=== PATIENT | female | born 1975 | race Caucasian/White ===

== ENCOUNTER → 2018-05-18 12:28 | Outpatient (CLI) | payer OTHER, SELFPAY ==
[2018-05-18 13:13] LABS: Cholesterol 247 mg/dL (140-199); HDL Cholesterol 66 mg/dL (40-60); LDL Cholesterol Calculated 149 mg/dL (<100); Triglycerides 161 mg/dL (35-150)
[2018-05-18 13:29] LABS: Free T4, Direct Thyroxine 1.28 ng/dL (0.78-2.19)
[2018-05-18 13:43] LABS: Thyroid Stimulating Hormone 1.37 uIU/mL (0.47-4.68)
[2018-05-18 17:13] LABS: Vitamin D 25 Hydroxy (D3) 36.1 ng/mL (30.0-100.0)
== END ==
PROVIDERS: PCP Student in an Organized Health Care Education/Training Program; Visit Provider Student in an Organized Health Care Education/Training Program
DX: E03.9 Hypothyroidism, unspecified (principal); K58.9 Irritable bowel syndrome, unspecified; Z13.220 Encounter for screening for lipoid disorders
CPT/HCPCS: 36415; 80061; 82306; 84439; 84443

== ENCOUNTER → 2018-07-28 11:46 | Outpatient (CLI) | payer OTHER, SELFPAY ==
--- NOTE | 2018-07-28 11:49 | DI.RAD.S_ITS ---
PROCEDURE: XR KNEE RT 3V INDICATIONS: bilateral knee pain TECHNIQUE: 3 views of the knee were acquired. COMPARISON: [facility], , KNEE 3V RIGHT, 04/21/2017, 11:01. FINDINGS: Bones: No fractures or dislocations. No suspicious bony lesions. Postsurgical changes related to ACL reconstruction. Soft tissues: Small joint effusion. No suspicious soft tissue calcifications. IMPRESSION: Status post ACL reconstruction. Mild lateral patellar tilt Small joint effusion. If the patient's pain or other symptoms persist, consider further evaluation with MRI Dictated by: Andre Knox M.D. on 07/28/2018 at 13:03 Approved by: Andre Knox M.D. on 07/28/2018 at 13:04
--- NOTE | 2018-07-28 11:49 | DI.RAD.S_ITS ---
PROCEDURE: XR KNEE LT 3V INDICATIONS: bilateral knee pain TECHNIQUE: 3 views of the knee were acquired. COMPARISON: [facility], , KNEE 3V RIGHT, 04/21/2017, 11:01. FINDINGS: Bones: No fractures or dislocations. No suspicious bony lesions. Mild medial joint space narrowing. Post surgical changes related to prior ACL repair. Lateral patellar tilt noted Soft tissues: No joint effusion. No suspicious soft tissue calcifications. IMPRESSION: Postsurgical changes related to ACL repair. Mild left knee joint degeneration. Lateral patellar tilt. Dictated by: Andre Knox M.D. on 07/28/2018 at 12:32 Approved by: Andre Knox M.D. on 07/28/2018 at 12:34
== END ==
PROVIDERS: PCP Student in an Organized Health Care Education/Training Program; Visit Provider Physical Medicine & Rehabilitation
DX: M25.561 Pain in right knee (principal); M25.562 Pain in left knee; M17.12 Unilateral primary osteoarthritis, left knee; M25.461 Effusion, right knee; M22.8X2 Other disorders of patella, left knee; M22.8X1 Other disorders of patella, right knee
CPT/HCPCS: 73562

== ENCOUNTER 2022-05-26 17:04 | Observation (INO) | payer OTHER, SELFPAY ==
[2022-05-26] VITALS (9 sets, daily range): BP systolic 133–164; BP diastolic 83–100; PULSE 81–115; RESP 14–37; TEMP 36.3–36.7; O2SAT 97–100; BMI 26.5; BMI 27.6
--- NOTE | 2022-05-26 18:50 | DI.RAD.S_ITS ---
PROCEDURE: XR FOOT LT MIN 3V INDICATIONS: foot injury TECHNIQUE: 3 views of the foot were acquired. COMPARISON: None. FINDINGS: Bones: No fractures or dislocations. No suspicious bony lesions. Soft tissues: No tibiotalar joint effusion. Achilles tendon appears normal. Mild forefoot soft tissue swelling without radiopaque foreign body. IMPRESSION: Soft tissue swelling without lytic lesion. If there is clinical concern for osteomyelitis, consider 3 phase bone scan or MRI Approved by: Jered Dickens M.D. on 05/26/2022 at 18:37
--- NOTE | 2022-05-26 19:38 | DI.RAD.S_ITS ---
PROCEDURE: XR CHEST 1V INDICATIONS: chest pain TECHNIQUE: One view of the chest was acquired. COMPARISON: [facility], , CHEST 2 VIEW, 05/11/2017, 12:05. FINDINGS: Surgical changes and devices: None. Lungs and pleura: Lungs are clear. No pleural effusions or pneumothorax. Mediastinum: Mediastinal contours appear normal. Heart size is normal. Bones and chest wall: No suspicious bony lesions. Overlying soft tissues appear unremarkable. IMPRESSION: No acute cardiopulmonary pathology. Dictated by: Keith Le M.D. on 05/26/2022 at 20:46 Approved by: Keith Le M.D. on 05/26/2022 at 20:47
--- NOTE | 2022-05-26 19:40 | ED.EXTPRO ---
HPI - Extremity Problem General Chief complaint: Extremity Problem,Nontraumatic Stated complaint: fluid on lt foot, painful, unable to walk Time Seen by Provider: 05/26/22 19:29 Mode of arrival: Family Vehicle History of Present Illness HPI Narrative: Patient complains left foot pain and swelling as well as left-sided chest pain. No sweating no nausea. Patient states he is had morphine without difficulty with allergies. Patient has history of stroke back in 2007 with left-sided weakness that has resolved. Patient has family history of coronary artery disease/or father. No prior history of blood clots in legs or lungs. 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 Has been doing well, she states possibly has ingrown planter's wart that has gone below the surface of the skin. Has had pain and swelling to the foot for the past week. No known injury. Related Data Home Medications Medication Instructions Recorded Confirmed albuterol sulfate 90 mcg/actuation 1 puff IH SEE INSTRUCTIONS 05/26/22 05/26/22 aerosol inhaler (Proventil HFA) dextroamphetamine-amphetamine ER 30 mg PO QAM 05/26/22 05/26/22 25 mg 24hr capsule,extend release ibuprofen 800 mg tablet 800 mg PO Q8-10H PRN Pain, Moderate 05/26/22 05/26/22 losartan 50 mg tablet 50 mg PO DAILY 05/26/22 05/26/22 promethazine 50 mg tablet 25 mg PO Q DAY PRN PRN nausea and 05/26/22 05/26/22 vomiting tizanidine 2 mg tablet 2 - 4 mg PO BID PRN Spasms 05/26/22 05/26/22 medroxyprogesterone 150 mg/mL 150 mg IM [id number] 05/27/22 05/27/22 intramuscular syringe (Depo-Provera) Previous Rx's Medication Instructions Recorded montelukast 10 mg tablet 10 mg PO Q DAY #90 tabs 01/26/18 (Singulair) Allergies Allergy/AdvReac Type Severity Reaction Status Date / Time amoxicillin [AMOXICILLIN] Allergy Intermediate UPSET Verified 05/26/22 17:28 STOMACH, EMESIS Penicillins [PENICILLINS] Allergy Unknown Verified 05/26/22 17:28 acetaminophen [From Vicodin] AdvReac Severe Vomiting Verified 05/26/22 17:29 hydrocodone [From Vicodin] AdvReac Severe Vomiting Verified 05/26/22 17:29 oxycodone [From Percocet] AdvReac Severe Vomiting Verified 05/26/22 17:29 duloxetine [From Cymbalta] AdvReac Intermediate Diarrhea Verified 05/26/22 17:28 pregabalin [From Lyrica] AdvReac Intermediate vomiting, Verified 05/26/22 17:28 dizzy spells Review of Systems Review of Systems Narrative: GENERAL: Denies chills, fatigue, malaise, fever, sweats. HEENT: Denies sinus pain, ear pain, sore throat RESPIRATORY: Denies dyspnea, cough CARDIOVASCULAR: Positive chest pain, negative palpitations GASTROINTESTINAL: Denies nausea, vomiting, abdominal pain : Denies dysuria, frequency, hematuria MUSCULOSKELETAL: Positive muscle or bony pain SKIN: Denies rash, skin lesions NEUROLOGIC: Denies weakness, numbness ROS Unobtainable: All systems reviewed & are unremarkable except as noted in HPI and below Patient History Medical History Acquired hypothyroidism (06/15/16) ADHD Anxiety (06/15/16) Anxiety (~2000) Anxiety (2000) Asthma Bucket handle tear of medial meniscus of knee Chronic fatigue (~2007) Cystic fibrosis Depression Endometriosis Fibromyalgia (06/15/16) Fibromyalgia (~2008) Fibromyalgia (2008) Hearing deficit Hearing loss Hearing loss High risk medication use (06/15/16) Hypothyroid (~1999) Hypothyroidism (1999) Irritable bowel syndrome (~2008) Migraine Migraine without status migrainosus, not intractable (06/15/16) Migraines Postsurgical menopause (05/24/17) Posttraumatic stress disorder (11/01/16) Primary insomnia (04/21/17) PTSD (post-traumatic stress disorder) PTSD (post-traumatic stress disorder) Rupture of anterior cruciate ligament of right knee Shoulder pain Stroke (~2007) Uncomplicated opioid use (05/24/17) Surgical History Hx of hysterectomy Hx of knee surgery (2003) Hx of knee surgery (09/2017) Status post appendectomy Family History Father Age: 74 Mental health disorder Mother Mental health disorder Social History marital status: household members: spouse and children education level: elementary school seatbelt use: always helmet use: Yes Smoking Status: Former smoker alcohol intake: current substance use type: marijuana during the past year weight has: decreased > 10 lbs well-balanced diet: daily or most days daily servings fruits/ve-4 caffeine: No eating out: 1-3 times/week Type(s) of exercise: additional (gym) frequency: 3-4 times per week duration: > 90 minutes/day Smoking Status: Former smoker alcohol intake frequency: holidays/special occasions only Substance Use Type: marijuana Exam Narrative Exam Narrative: GENERAL: in no distress, not toxic not dyspneic HEAD: Normocephalic. EYES: Pupils equal round No scleral icterus. ENT: Mucous membranes moist. NECK: Trachea midline. CARDIOVASCULAR: Regular rate and rhythm without murmurs RESPIRATORY: Clear to auscultation. Breath sounds equal bilaterally. No wheezes, rales, or rhonchi. GASTROINTESTINAL: Abdomen soft, non-tender EXTREMITIES: No gross deformities. Examination left foot and ankle. Nontender ankle. There is diffuse forefoot edema with no cellulitis erythema, it is tender to touch diffusely entire foot. Brisk cap refills. Strong pedal pulse. No discoloration. Calf is nontender. No palpable cords. NEURO: AOx4. SKIN: Warm and dry PSYCH: Not anxious, is cooperative Initial Vital Signs Initial Vital Signs: Vital Signs Temperature 97.3 F L 05/26/22 17:20 Pulse Rate 115 H 05/26/22 17:20 Respiratory Rate 18 05/26/22 17:20 Blood Pressure 143/89 H 05/26/22 17:20 Pulse Oximetry 99 05/26/22 17:20 Oxygen Delivery Method 05/26/22 17:20 Course Course Course Narrative: No new issues during course of stay Decision to Admit Date: 05/26/22 Decision to Admit time: 22:10 Orders Ordered: ED Orders 05/26/22 18:50 XR foot LT min 3V Stat 05/26/22 19:38 XR chest 1V Stat 05/26/22 19:41 US periph venous low extrem lt Stat 05/26/22 19:51 EKG-12 Lead Stat 05/26/22 19:52 Complete Blood Count AUTO DIFF Stat Comprehensive Metabolic Panel Stat D Dimer Stat Troponin & CK Cardiac Panel Stat 05/26/22 19:55 COVID19 -Nasal RAPID/Pre-Proc Stat Aspirin (Aspirin Ec 81 Mg Tablet) 162 mg PO DAILY [facility] Hydromorphone HCl (Hydromorphone 1 Mg Inj) 1 mg IV Q4H PRN PRN Reason: Pain, Severe (7-10) Last Admin: 05/27/22 00:03 Dose: 1 mg Documented By: JOSE JUAN Sodium Chloride (Normal Saline 0.9%) 1,000 mls @ 100 mls/hr IV CONT TONY Last Admin: 05/26/22 23:58 Dose: 100 mls/hr Documented By: JOSE JUAN Ibuprofen (Ibuprofen 400 Mg Tablet) 400 mg PO Q4H PRN PRN Reason: Pain, Mild (1-3) Influenza Virus Vaccine (Influenza Vaccine Qiv 0.5 Ml Syringe) 0.5 ml IM .ONCE ONE Stop: 05/27/22 09:01 Naloxone HCl (Naloxone 0.4 Mg/Ml Vial) 0.2 mg IV Q2MIN PRN PRN Reason: Opiate Reversal Ondansetron HCl (Ondansetron 4 Mg/2 Ml Inj) 4 mg IV Q4HR PRN PRN Reason: Nausea And Vomiting Last Admin: 05/27/22 00:19 Dose: 4 mg Documented By: JOSE JUAN Promethazine HCl (Promethazine 25 Mg Supp) 25 mg [place] Q6HR PRN PRN Reason: Nausea Discontinued Medications Aspirin (Aspirin 81 Mg Chew Tab) 324 mg PO NOW ONE Stop: 05/26/22 19:39 Last Admin: 05/26/22 20:06 Dose: 324 mg Documented By: SUDHIR Morphine Sulfate (Morphine 4 Mg/Ml Inj) 4 mg IV NOW ONE Stop: 05/26/22 19:39 Last Admin: 05/26/22 20:07 Dose: 4 mg Documented By: SUDHIR Morphine Sulfate (Morphine 4 Mg/Ml Inj) 4 mg IV NOW ONE Stop: 05/26/22 22:55 Last Admin: 05/26/22 22:57 Dose: 4 mg Documented By: CLEM Nitroglycerin (Nitroglycerin Oint 1 Inch/Gm Oint...G.) 0.5 inch TOP NOW ONE Stop: 05/26/22 19:39 Last Admin: 05/26/22 20:06 Dose: 0.5 inch Documented By: SUDHIR Ondansetron HCl (Ondansetron 4 Mg/2 Ml Inj) 4 mg IV NOW ONE Stop: 05/26/22 19:39 Last Admin: 05/26/22 20:07 Dose: 4 mg Documented By: SUDHIR Ondansetron HCl (Ondansetron 4 Mg/2 Ml Inj) 4 mg IV Q8HR PRN PRN Reason: Nausea And Vomiting Reevaluation(s) Reevaluation #1: Chest pain-free. Pain is controlled in the foot. Reviewed results with patient. Agrees for admit. Time: 21:42 Consultations Consultation #1: Spoke with hospitalist Dr. Cramer, will see pt and admit Time: 22:10 Vital Signs Vital signs: Vital Signs - 8 hr 05/26/22 20:03 05/26/22 20:03 05/26/22 20:30 Pulse Rate 96 H Respiratory Rate Blood Pressure 154/97 H 164/100 H Pulse Oximetry 99 05/26/22 20:30 05/26/22 21:00 05/26/22 21:00 Pulse Rate 90 94 H Respiratory Rate 31 H 14 Blood Pressure 149/85 H Pulse Oximetry 100 99 05/26/22 21:30 05/26/22 22:00 05/26/22 22:00 Pulse Rate 91 H 83 Respiratory Rate 22 18 Blood Pressure 133/83 Pulse Oximetry 99 98 MDM - Extremity (Nontraumatic) Differential Diagnosis Differential diagnosis: Likely superficial thrombophlebitis, deep venous thrombosis of upper extremity, lower extremity edema, deep vein thrombosis of lower extremity and other (Chest pain/atypical chest pain/PE) Lab Data Result diagrams: 05/26/22 19:52 05/26/22 19:52 Labs: Lab Results 05/26/22 05/26/22 05/26/22 Range/Units 19:52 19:52 19:52 WBC 7.8 (4.5-11.0) X10^3/uL RBC 3.90 L (4.0-5.2) X10^6/uL Hgb 12.9 (12.0-16.0) g/dL Hct 38.0 (36-46) % MCV 97.3 (80-100) fL MCH 33.1 (26-34) PG MCHC 34.0 (30-36) % RDW 13.4 (11.6-14.8) % Plt Count 410 H (150-400) X10^3/uL Neut % (Auto) 65.2 (50-75) % Lymph % (Auto) 26.5 (25-40) % [place] % (Auto) 7.2 (3-14) % Eos % (Auto) 0.4 L (2-4) % Baso % (Auto) 0.7 (0-2) % Neut # (Auto) 5100 (0246-1139) /uL Lymph # (Auto) 2100 (3552-9123) /uL [place] # (Auto) 600 (0-900) /uL Eos # (Auto) 0 (0-450) /uL Baso # (Auto) 100 (0-100) /uL D-Dimer 488 (<500) ng/ml Sodium 138 (137-145) mmol/L Potassium 3.8 (3.4-5.1) mmol/L Chloride 106 (98-107) mmol/L Carbon Dioxide 23 (22-32) mmol/L BUN 11 (7-17) mg/dL Creatinine 0.69 (0.52-1.04) mg/dL Estimated GFR > 60 (>60) mL/min BUN/Creatinine Ratio 15.9 (6-22) Glucose 121 H (70-100) mg/dL Calcium 9.0 (8.4-10.2) mg/dL Total Bilirubin 0.3 (0.2-1.3) mg/dL AST 22 (14-36) IU/L ALT 23 (<35) IU/L Alkaline Phosphatase 130 H (38-126) U/L Total Creatine Kinase 44 (30-135) U/L CK-MB (CK-2) TNP CK-MB (CK-2) Rel Index TNP Troponin I < 0.012 (0.01-0.034) ng/mL Total Protein 7.6 (6.3-8.2) g/dL Albumin 4.2 (3.5-5.0) g/dL Globulin 3.4 (1.7-4.1) g/dL Albumin/Globulin Ratio 1.2 (1.0-2.8) SARS-CoV-2 (PCR) (Negative) 05/26/22 Range/Units 19:55 WBC (4.5-11.0) X10^3/uL RBC (4.0-5.2) X10^6/uL Hgb (12.0-16.0) g/dL Hct (36-46) % MCV (80-100) fL MCH (26-34) PG MCHC (30-36) % RDW (11.6-14.8) % Plt Count (150-400) X10^3/uL Neut % (Auto) (50-75) % Lymph % (Auto) (25-40) % [place] % (Auto) (3-14) % Eos % (Auto) (2-4) % Baso % (Auto) (0-2) % Neut # (Auto) (3581-6855) /uL Lymph # (Auto) (8914-7671) /uL [place] # (Auto) (0-900) /uL Eos # (Auto) (0-450) /uL Baso # (Auto) (0-100) /uL D-Dimer (<500) ng/ml Sodium (137-145) mmol/L Potassium (3.4-5.1) mmol/L Chloride (98-107) mmol/L Carbon Dioxide (22-32) mmol/L BUN (7-17) mg/dL Creatinine (0.52-1.04) mg/dL Estimated GFR (>60) mL/min BUN/Creatinine Ratio (6-22) Glucose (70-100) mg/dL Calcium (8.4-10.2) mg/dL Total Bilirubin (0.2-1.3) mg/dL AST (14-36) IU/L ALT (<35) IU/L Alkaline Phosphatase (38-126) U/L Total Creatine Kinase (30-135) U/L CK-MB (CK-2) CK-MB (CK-2) Rel Index Troponin I (0.01-0.034) ng/mL Total Protein (6.3-8.2) g/dL Albumin (3.5-5.0) g/dL Globulin (1.7-4.1) g/dL Albumin/Globulin Ratio (1.0-2.8) SARS-CoV-2 (PCR) Negative (Negative) Urine Dip Bedside Urine Glucose Negative Bedside Urine Bilirubin - Negative Bedside Urine Ketone - Negative Urine Specific [place] 1.010 Bedside Urine Occult Blood - Negative Bedside Urine pH 6.0 Bedside Urine Protein - Negative Bedside Urine Urobilinogen - Negative Bedside Urine Nitrite - Negative Bedside Urine Leukocytes - Negative Esterase Imaging Data Chest x-ray: Radiologist's Impression: [address] [id number] XRay Report Signed Patient: Petar Gaitan MR#: [id number] : 1975 Acct:[id number] Age/Sex: 47 / F Date of Service: 05/26/22 Loc: ED Accession Number: [id number] ?? Procedure: XR chest 1V Ordering Provider: Tonio Eaton MD PROCEDURE:? XR CHEST 1V ? INDICATIONS:? chest pain ? TECHNIQUE:? One view of the chest was acquired.? ? COMPARISON:? [facility], , CHEST 2 VIEW, 05/11/2017, 12:05. ? FINDINGS:? ? Surgical changes and devices:? None.? ? Lungs and pleura:? Lungs are clear.? No pleural effusions or pneumothorax.? ? Mediastinum:? Mediastinal contours appear normal.? Heart size is normal.? ? Bones and chest wall:? No suspicious bony lesions.? Overlying soft tissues appear unremarkable.? ? IMPRESSION:? No acute cardiopulmonary pathology. ? ? Dictated by: Keith Le M.D. on 05/26/2022 at 20:46 ? ? Approved by: Keith Le M.D. on 05/26/2022 at 20:47 ? Extremity x-ray #1: Radiologist's Impression: [address] [id number] XRay Report Signed Patient: Petar Gaitan MR#: [id number] : 1975 Acct:[id number] Age/Sex: 47 / F Date of Service: 05/26/22 Loc: ED Accession Number: [id number] ?? Procedure: XR foot LT min 3V Ordering Provider: Tonio Eaton MD PROCEDURE:? XR FOOT LT MIN 3V ? INDICATIONS:? foot injury ? TECHNIQUE:? 3 views of the foot were acquired.? ? COMPARISON:? None. ? FINDINGS:? ? Bones:? No fractures or dislocations.? No suspicious bony lesions.? ? Soft tissues:? No tibiotalar joint effusion.? Achilles tendon appears normal.? Mild forefoot soft tissue swelling without radiopaque foreign body. ? ? IMPRESSION:? ? Soft tissue swelling without lytic lesion.? If there is clinical concern for osteomyelitis, consider 3 phase bone scan or MRI ? ? ? Approved by: Jered Dickens M.D. on 05/26/2022 at 18:37? US - DVT: Radiologist's Impression: [address] [address] Ultrasound Report Signed Patient: Petar Gaitan MR#: [id number] : 1975 Acct:[id number] Age/Sex: 47 / F Date of Service: 05/26/22 Loc: ED Accession Number: [id number] ?? Procedure: US periph venous low extrem lt Ordering Provider: Tonio Eaton MD PROCEDURE:? US PERIPH VENOUS LOW EXTREM LT ? INDICATIONS:? PAIN, EDEMA ? TECHNIQUE:? Real-time imaging, as well as color and pulse Doppler interrogation, were performed of the lower extremity deep veins from the inguinal ligament to the popliteal fossa.? ? COMPARISON:? None. ? FINDINGS:? The common femoral, femoral and popliteal veins are normally compressible, and free of intraluminal thrombus.? Color and pulse Doppler demonstrate normal phasic intraluminal flow.? There is normal augmentation response to distal compression maneuver. ? ? IMPRESSION:? No evidence of DVT in visualized left lower extremity veins. ? ? Dictated by: Keith Le M.D. on 05/26/2022 at 21:18 ? ? Approved by: Keith Le M.D. on 05/26/2022 at 21:18 ? ECG Data Interpretation: Normal sinus rhythm normal EKG rate [address] elevation or depression MDM Narrative Medical decision making narrative: Appropriate for admission for chest pain rule out. Has significant cardiovascular history/disease. Chest pain-free at this time. Agrees for admission. Left foot pain nonspecific however can be followed as outpatient basis. Discharge Plan Departure Patient Disposition: Admitted as Observation Clinical Impression: Atypical chest pain, Acute foot pain Admit Date/Time: 05/26/22 22:19 Admit Provider: Codi Levin
--- NOTE | 2022-05-26 19:41 | DI.US.S_ITS ---
PROCEDURE: US PERIPH VENOUS LOW EXTREM LT INDICATIONS: PAIN, EDEMA TECHNIQUE: Real-time imaging, as well as color and pulse Doppler interrogation, were performed of the lower extremity deep veins from the inguinal ligament to the popliteal fossa. COMPARISON: None. FINDINGS: The common femoral, femoral and popliteal veins are normally compressible, and free of intraluminal thrombus. Color and pulse Doppler demonstrate normal phasic intraluminal flow. There is normal augmentation response to distal compression maneuver. IMPRESSION: No evidence of DVT in visualized left lower extremity veins. Dictated by: Keith Le M.D. on 05/26/2022 at 21:18 Approved by: Keith Le M.D. on 05/26/2022 at 21:18
[2022-05-26] MEDS: NITROGLYCERIN OINT 1 INCH/GM OINT...G. 0.5 INCH TOP (20:06)
[2022-05-26] MEDS: ASPIRIN 81 MG CHEW TAB 324 MG PO (20:06)
[2022-05-26 20:07] LABS: Add Manual Diff / Slide Review NO; Basophils Absolute Auto 100 /uL (0-100); Basophils Percent Auto 0.7 % (0-2); Eosinophils Absolute Auto 0 /uL (0-450); Eosinophils Percent Auto 0.4 % (2-4); Hemoglobin 12.9 g/dL (12.0-16.0); Lymphocytes Absolute Auto 2100 /uL (1100-4500); Lymphocytes Percent Auto 26.5 % (25-40); Mean Corpuscular Hemoglobin 33.1 PG (26-34); Mean Corpuscular Volume 97.3 fL (80-100); Monocytes Absolute Auto 600 /uL (0-900); Monocytes Percent Auto 7.2 % (3-14); Neutrophils Absolute Auto 5100 /uL (1500-7000); Neutrophils Percent Auto 65.2 % (50-75); Platelet Count 410 X10^3/uL (150-400); Red Cell Distribution Width 13.4 % (11.6-14.8); White Blood Cell Count 7.8 X10^3/uL (4.5-11.0)
[2022-05-26] MEDS: ONDANSETRON 4 MG/2 ML INJ IV (20:07)
[2022-05-26] MEDS: MORPHINE 4 MG/ML INJ IV ×2 (20:07→22:57)
[2022-05-26 20:36] LABS: D Dimer 488 ng/ml (<500)
[2022-05-26 20:38] LABS: Alanine Aminotransferase 23 IU/L (<35); Albumin 4.2 g/dL (3.5-5.0); Albumin Globulin Ratio 1.2 (1.0-2.8); Alkaline Phosphatase 130 U/L (38-126); Aspartate Aminotransferase 22 IU/L (14-36); BUN Creatinine Ratio 15.9 (6-22); Bilirubin Total 0.3 mg/dL (0.2-1.3); Blood Urea Nitrogen 11 mg/dL (7-17); Carbon Dioxide 23 mmol/L (22-32); Chloride 106 mmol/L (98-107); Creatine Kinase 44 U/L (30-135); Estimated Glomerular Filt Rate > 60 mL/min (>60); Globulin 3.4 g/dL (1.7-4.1); Glucose 121 mg/dL (70-100); HEMOLYSIS < 15 (0-50); Potassium 3.8 mmol/L (3.4-5.1); Sodium 138 mmol/L (137-145); Total Protein 7.6 g/dL (6.3-8.2)
[2022-05-26 20:47] LABS: COVID19 -Nasal RAPID Negative (Negative)
[2022-05-26 20:49] LABS: Troponin I < 0.012 ng/mL (0.01-0.034)
--- NOTE | 2022-05-26 23:10 | P.HP_ITS ---
History of Present Illness History of Present Illness Chief complaint: fluid on lt foot, painful, unable to walk Narrative: Patient complains left foot pain and swelling as well as left-sided chest pain.? No sweating no nausea.? Patient states he is had morphine without difficulty with allergies.? Patient has history of stroke back in 2007 with left-sided weakness that has resolved.? Patient has family history of coronary artery disease/or father.? No prior history of blood clots in legs or lungs.? Patient s [id number] she had left foot plantar warts taken care of by a mobile battery technician.? Has been doing well, she states possibly has ingrown planter's wart that has gone below the surface of the skin.? Has had pain and swelling to the foot for the past week.? No known injury. And I saw the patient in the ER she continues to have left lower extremity pain that started few days ago, she used to have a Podiatry but not anymore she did not like the care process. She complains of sharp pain in the left foot with some swelling under the great toe region. She is unable to walk on the foot because of the pain. She describes pain 8/10 sharp radiating to the leg exacerbated by walking and weight-bearing. She came to the ER for further evaluation of the chest pain which is intermittent midsternal nonexertional 6/10 dull and no significant relieving or exacerbating factors but nitro given in the ER does seem to be helped a little bit. I spent extensive time at bedside gathering more information regarding her complaints, review of systems positive for chest pain, leg pain primarily but she does have chronic pain syndrome secondary to fibromyalgia as she confirms. She was worried about the leg clots but I assured her the ultrasound negative for DVT. Her present at bedside. She is worried that she might miss her daughter's 18th birthday in 2 days. Review of systems positive for mild intermittent headaches, chronic body pains, leg pain. no fevers no chills. Patient History Medical History Acquired hypothyroidism (06/15/16) ADHD Anxiety (06/15/16) Anxiety (~2000) Anxiety (2000) Asthma Bucket handle tear of medial meniscus of knee Chronic fatigue (~2007) Cystic fibrosis Depression Endometriosis Fibromyalgia (06/15/16) Fibromyalgia (~2008) Fibromyalgia (2008) Hearing deficit Hearing loss Hearing loss High risk medication use (06/15/16) Hypothyroid (~1999) Hypothyroidism (1999) Irritable bowel syndrome (~2008) Migraine Migraine without status migrainosus, not intractable (06/15/16) Migraines Postsurgical menopause (05/24/17) Posttraumatic stress disorder (11/01/16) Primary insomnia (04/21/17) PTSD (post-traumatic stress disorder) PTSD (post-traumatic stress disorder) Rupture of anterior cruciate ligament of right knee Shoulder pain Stroke (~2007) Uncomplicated opioid use (05/24/17) Surgical History Hx of hysterectomy Hx of knee surgery (2003) Hx of knee surgery (09/2017) Status post appendectomy Family & Social History Family History Father Age: 74 Mental health disorder Mother Mental health disorder Safety & Behavioral: Feels Safe in Current Yes Environment Been Physically Hurt or No Threatened By a Person Tobacco & Substance use: Smoking Status Former smoker alcohol intake never alcohol intake frequency holiday/special occasion Substance Use Type marijuana Comment: Family history positive for coronary artery disease. Meds Home Medications and Allergies Home Medications Medication Instructions Recorded Confirmed Type montelukast 10 mg tablet 10 mg PO Q DAY #90 tabs 01/26/18 05/26/22 Rx (Singulair) albuterol sulfate 90 mcg/actuation 1 puff IH SEE INSTRUCTIONS 05/26/22 05/26/22 History aerosol inhaler (Proventil HFA) dextroamphetamine-amphetamine ER 30 mg PO QAM 05/26/22 05/26/22 History 25 mg 24hr capsule,extend release ibuprofen 800 mg tablet 800 mg PO Q8-10H PRN Pain, Moderate 05/26/22 05/26/22 History losartan 50 mg tablet 50 mg PO DAILY 05/26/22 05/26/22 History promethazine 50 mg tablet 25 mg PO Q DAY PRN PRN nausea and 05/26/22 05/26/22 History vomiting tizanidine 2 mg tablet 2 - 4 mg PO BID PRN Spasms 05/26/22 05/26/22 History Allergies Allergy/AdvReac Type Severity Reaction Status Date / Time amoxicillin [AMOXICILLIN] Allergy Intermediate UPSET Verified 05/26/22 17:28 STOMACH, EMESIS Penicillins [PENICILLINS] Allergy Unknown Verified 05/26/22 17:28 acetaminophen [From Vicodin] AdvReac Severe Vomiting Verified 05/26/22 17:29 hydrocodone [From Vicodin] AdvReac Severe Vomiting Verified 05/26/22 17:29 oxycodone [From Percocet] AdvReac Severe Vomiting Verified 05/26/22 17:29 duloxetine [From Cymbalta] AdvReac Intermediate Diarrhea Verified 05/26/22 17:28 pregabalin [From Lyrica] AdvReac Intermediate vomiting, Verified 05/26/22 17:28 dizzy spells Review of Systems Review of Systems Narrative: All other systems reviewed, negative other than as mentioned above in HPI Exam Vital Signs (past 8 hours): - 05/26/22 17:20 05/26/22 20:03 05/26/22 20:03 Temperature 97.3 F L Pulse Rate 115 H 96 H Respiratory Rate 18 Blood Pressure 143/89 H 154/97 H Pulse Oximetry 99 99 Oxygen Delivery Method Room Air 05/26/22 20:30 05/26/22 20:30 05/26/22 21:00 Temperature Pulse Rate 90 Respiratory Rate 31 H Blood Pressure 164/100 H 149/85 H Pulse Oximetry 100 Oxygen Delivery Method 05/26/22 21:00 05/26/22 21:30 05/26/22 22:00 Temperature Pulse Rate 94 H 91 H Respiratory Rate 14 22 Blood Pressure 133/83 Pulse Oximetry 99 99 Oxygen Delivery Method 05/26/22 22:00 05/26/22 22:30 05/26/22 22:30 Temperature Pulse Rate 83 112 H Respiratory Rate 18 37 H Blood Pressure 145/84 H Pulse Oximetry 98 98 Oxygen Delivery Method 05/26/22 23:00 Temperature Pulse Rate 84 Respiratory Rate 18 Blood Pressure Pulse Oximetry 97 Oxygen Delivery Method Oxygen Delivery Method Room Air Narrative Exam Narrative: Alert oriented does seem to be anxious, worried, able to make a reasonable conversation, follows commands. Examination positive for mild epigastric discomfort on deep palpation, left lower extremity swelling specifically in the plantar area of the left foot, possible fluid accumulation, tenderness on superficial palpation, examination is limited because patient complains significant amount of pain for touch. I did not feel redness or warmth nurse on my palpation on left extremity. I was able to feel dorsalis pedis pulses appropriately on both extremities. No calf tenderness. Range of motion is also limited because patient having pain when trying to move her left foot toes. No signs of ischemia or discoloration noted on my exam. Cardiovascular, respiratory, constitutional, HEENT, neuro, skin, psych examination done, negative other than as mentioned above Objective Labs Result Diagrams: 05/26/22 19:52 05/26/22 19:52 Labs: Laboratory Results - last 24 hr 05/26/22 05/26/22 05/26/22 19:52 19:52 19:52 WBC 7.8 RBC 3.90 L Hgb 12.9 Hct 38.0 MCV 97.3 MCH 33.1 MCHC 34.0 RDW 13.4 Plt Count 410 H Neut % (Auto) 65.2 Lymph % (Auto) 26.5 [place] % (Auto) 7.2 Eos % (Auto) 0.4 L Baso % (Auto) 0.7 Neut # (Auto) 5100 Lymph # (Auto) 2100 [place] # (Auto) 600 Eos # (Auto) 0 Baso # (Auto) 100 D-Dimer 488 Sodium 138 Potassium 3.8 Chloride 106 Carbon Dioxide 23 BUN 11 Creatinine 0.69 Estimated GFR > 60 BUN/Creatinine Ratio 15.9 Glucose 121 H Calcium 9.0 Total Bilirubin 0.3 AST 22 ALT 23 Alkaline Phosphatase 130 H Total Creatine Kinase 44 CK-MB (CK-2) TNP CK-MB (CK-2) Rel Index TNP Troponin I < 0.012 Total Protein 7.6 Albumin 4.2 Globulin 3.4 Albumin/Globulin Ratio 1.2 SARS-CoV-2 (PCR) 05/26/22 19:55 WBC RBC Hgb Hct MCV MCH MCHC RDW Plt Count Neut % (Auto) Lymph % (Auto) [place] % (Auto) Eos % (Auto) Baso % (Auto) Neut # (Auto) Lymph # (Auto) [place] # (Auto) Eos # (Auto) Baso # (Auto) D-Dimer Sodium Potassium Chloride Carbon Dioxide BUN Creatinine Estimated GFR BUN/Creatinine Ratio Glucose Calcium Total Bilirubin AST ALT Alkaline Phosphatase Total Creatine Kinase CK-MB (CK-2) CK-MB (CK-2) Rel Index Troponin I Total Protein Albumin Globulin Albumin/Globulin Ratio SARS-CoV-2 (PCR) Negative Assessment & Plan Assessment & Plan narrative: Nonexertional chest pain -strong family history and also history of stroke -high-risk -telemetry monitoring, troponin, stress test in the morning Left lower extremity pain, swelling of plantar surface -unclear etiology, before considering MRI, we will call Podiatry for further recommendations -I explained to the patient that my expertise and limited on unfortunately I am unable to conclude any diagnosis at this time, we will wait for expert opinion for further recommendations Chronic pain syndrome and fibromyalgia -continue home medications Other chronic medical conditions are stable DVT and GI prophylaxis reviewed Patient is full code Care plan extensively discussed with the patient and also at bedside, answered all questions. Time Spent With Patient Critical Care time: I spent a total of [] minutes of critical care time on this patient's care today; this time is exclusive of procedural time.
[2022-05-26] MEDS: SODIUM CHLORIDE 0.9% 1,000 ML 100 ML IV (23:58)
[2022-05-27] MEDS: HYDROMORPHONE 1 MG INJ IV (00:03)
[2022-05-27] MEDS: ONDANSETRON 4 MG/2 ML INJ IV ×3 (00:19→12:00)
--- NOTE | 2022-05-27 00:48 | PC.ADMIT ---
Addendum entered by Petra Pickard R.N. 05/27/22 03:46: Noted that HR intermittently dropping down into 30's after administration of Phenergan. Currently HR is 65 and patient appears to be resting with no current nausea/vomiting. Addendum entered by Petra Pickard R.N. 05/27/22 02:17: Continuing to have nausea with dry heaves so Dr Levin contacted and ordered received for Phenergan; medicated as ordered. Original Note: [address] Admission Note: The patient,Petar Gaitan,47 y/o, was given written information regarding hospital policies, unit procedures and contact persons. Patient's smoking status: Former smoker. Vital Signs - 8 hr 05/26/22 17:20 05/26/22 20:03 05/26/22 20:03 Temperature 97.3 F L Pulse Rate 115 H 96 H Respiratory Rate 18 Blood Pressure 143/89 H 154/97 H Pulse Oximetry 99 99 Oxygen Delivery Method Room Air Oxygen Flow Rate 05/26/22 20:30 05/26/22 20:30 05/26/22 21:00 Temperature Pulse Rate 90 Respiratory Rate 31 H Blood Pressure 164/100 H 149/85 H Pulse Oximetry 100 Oxygen Delivery Method Oxygen Flow Rate 05/26/22 21:00 05/26/22 21:30 05/26/22 22:00 Temperature Pulse Rate 94 H 91 H Respiratory Rate 14 22 Blood Pressure 133/83 Pulse Oximetry 99 99 Oxygen Delivery Method Oxygen Flow Rate 05/26/22 22:00 05/26/22 22:30 05/26/22 22:30 Temperature Pulse Rate 83 112 H Respiratory Rate 18 37 H Blood Pressure 145/84 H Pulse Oximetry 98 98 Oxygen Delivery Method Oxygen Flow Rate 05/26/22 23:00 05/26/22 23:34 05/27/22 00:42 Temperature 98.1 F Pulse Rate 84 81 Respiratory Rate 18 21 Blood Pressure 145/99 H Pulse Oximetry 97 100 Oxygen Delivery Method Room Air Oxygen Flow Rate 0 Patient admitted to room 210 per stretcher from ER. Is alert and oriented. Breath sounds CTA with RA sat of 100%. HRR w/telemetry reading of ST w/rate of 103. Does endorse chest tightness and MD is aware; has NTG patch on right chest. Complains of nausea and has 2 episode of emesis; medicated with Zofran. BT present and abdomen is soft. Reports she sometimes doesn't make it to the bathroom in time and has been incontinent so wears a pad; denies dysuria. Is able to turn herself in bed. Hx of CVA with residual left UE weakness/tremors and left LE weakness/tingling. Complains of pain in left foot and yells out with any movement or touching of extremity; trace edema noted. States she is unable to bear weight on left foot. Normally uses a cane for ambulation. Endorses chronic fatigue, anxiety and has hx of fibromyalgia. Bilateral calf SCD's applied. Fall risk score is high and bed alarm is activated. NPO as per MD order as plan for stress test in a.m. Oriented to call light and bed controls. Medicated for left foot pain with Dilaudid.
[2022-05-27] MEDS: PROMETHAZINE 25 MG SUPP PR (01:55)
[2022-05-27 04:00] VITALS: BP 133/94; PULSE 48; RESP 17; TEMP 35.6; O2SAT 100
[2022-05-27 08:47] VITALS: BP 155/98; PULSE 77; RESP 18; TEMP 36.3; O2SAT 99
[2022-05-27] MEDS: ASPIRIN EC 81 MG TABLET 162 MG PO (09:53)
[2022-05-27] MEDS: MORPHINE 2 MG/ML INJ IV ×4 (09:54→22:57)
[2022-05-27] MEDS: INFLUENZA VACCINE QIV 0.5 ML SYRINGE IM (10:51)
[2022-05-27] MEDS: SODIUM CHLORIDE 0.9% 1,000 ML 100 ML IV ×2 (11:01→21:48)
--- NOTE | 2022-05-27 11:16 | CM.DANOTE ---
Initial Discharge Assessment Note: Case reviewed, met with patient. Introduced self and role. Payer: and self pay PCP: Dr Tomás Sneed 47 year old female admitted with pain and swelling to left plantar foot and difficulty ambulating. She states she has had plantar warts in past and has had surgery for. Negative for DVT. She is NPO for possible stress test today. Plan: Patient lives in [place] with spouse and desires to return home when cleared. Follow for needs. NERY Discharge Planning/Care Management CM Discharge Assessment Start: 05/27/22 11:05 Freq: Status: Active Protocol: Document 05/27/22 11:05 (Rec: 05/27/22 11:16 [id number]) Discharge Planning Assessment Assigned [place] [employer] Operator Isa Olsen RN/DERICP Advance Directives? No History Provided By Patient Prior Living Arrangements Apartment/Condo Household Members spouse,children Type of transporation used prior to Drives own vehicle admit Independent with ADL's Yes Is patient alert and oriented? Yes Caregiver for Another No Barriers to Discharge No Discharge Plan Home Referrals Initiated None needed Review Status In Process Next Review Type Continued Stay Review
[2022-05-27 11:55] VITALS: BP 141/97; PULSE 80; RESP 16; TEMP 36.6; O2SAT 100
[2022-05-27] MEDS: IBUPROFEN 400 MG TABLET PO (12:21)
--- NOTE | 2022-05-27 13:08 | P.PN_ITS ---
Subjective Subjective Interval history: Patient complained on presentation to the ER of left foot pain and swelling as well as left-sided chest pain.? No sweating no nausea.? Patient states she i had morphine without difficulty with allergies.? Patient has history of stroke back in 2007 with left-sided weakness that has resolved.? Patient has family history of coronary artery disease/or father. Currently she is waiting for a cardiac stress test that is scheduled for tomorrow. In regards to her left foot pain and swelling. It remains persistent. The most tender part of the foot is at the site of a callus on the ball of the foot. She thinks the calluses over a wart and her theory is that the wart is fairly deep and is causing the swelling as well. There is no erythema. There is no open wound. The plan and regards to the left foot will be to refer her to a enrollment representative on discharge. Exam Vital Signs (past 8 hours): - 05/27/22 08:47 05/27/22 11:55 Temperature 97.3 F L 97.8 F Pulse Rate 77 80 Respiratory Rate 18 16 Blood Pressure 155/98 H 141/97 H Pulse Oximetry 99 100 Oxygen Flow Rate 0 0 Oxygen Delivery Method Room Air Oxygen Flow Rate 0 Narrative Exam Narrative: General: In no acute medical distress. Cardiovascular: Heart sounds S1 and S2 Respiratory: Adequate air entry throughout the lung [place] Extremities: Swelling left foot. No erythema. Most marked tenderness at the ball of the left foot in area where there is a callus. Objective Labs Result Diagrams: 05/26/22 19:52 05/26/22 19:52 Labs: Laboratory Results - last 24 hr 05/26/22 05/26/22 05/26/22 19:52 19:52 19:52 WBC 7.8 RBC 3.90 L Hgb 12.9 Hct 38.0 MCV 97.3 MCH 33.1 MCHC 34.0 RDW 13.4 Plt Count 410 H Neut % (Auto) 65.2 Lymph % (Auto) 26.5 [place] % (Auto) 7.2 Eos % (Auto) 0.4 L Baso % (Auto) 0.7 Neut # (Auto) 5100 Lymph # (Auto) 2100 [place] # (Auto) 600 Eos # (Auto) 0 Baso # (Auto) 100 D-Dimer 488 Sodium 138 Potassium 3.8 Chloride 106 Carbon Dioxide 23 BUN 11 Creatinine 0.69 Estimated GFR > 60 BUN/Creatinine Ratio 15.9 Glucose 121 H Calcium 9.0 Total Bilirubin 0.3 AST 22 ALT 23 Alkaline Phosphatase 130 H Total Creatine Kinase 44 CK-MB (CK-2) TNP CK-MB (CK-2) Rel Index TNP Troponin I < 0.012 Total Protein 7.6 Albumin 4.2 Globulin 3.4 Albumin/Globulin Ratio 1.2 SARS-CoV-2 (PCR) 05/26/22 19:55 WBC RBC Hgb Hct MCV MCH MCHC RDW Plt Count Neut % (Auto) Lymph % (Auto) [place] % (Auto) Eos % (Auto) Baso % (Auto) Neut # (Auto) Lymph # (Auto) [place] # (Auto) Eos # (Auto) Baso # (Auto) D-Dimer Sodium Potassium Chloride Carbon Dioxide BUN Creatinine Estimated GFR BUN/Creatinine Ratio Glucose Calcium Total Bilirubin AST ALT Alkaline Phosphatase Total Creatine Kinase CK-MB (CK-2) CK-MB (CK-2) Rel Index Troponin I Total Protein Albumin Globulin Albumin/Globulin Ratio SARS-CoV-2 (PCR) Negative [facility] Medical History Acquired hypothyroidism (06/15/16) ADHD Anxiety (06/15/16) Anxiety (~2000) Anxiety (2000) Asthma Bucket handle tear of medial meniscus of knee Chronic fatigue (~2007) Cystic fibrosis Depression Endometriosis Fibromyalgia (06/15/16) Fibromyalgia (~2008) Fibromyalgia (2008) Hearing deficit Hearing loss Hearing loss High risk medication use (06/15/16) Hypothyroid (~1999) Hypothyroidism (1999) Irritable bowel syndrome (~2008) Migraine Migraine without status migrainosus, not intractable (06/15/16) Migraines Postsurgical menopause (05/24/17) Posttraumatic stress disorder (11/01/16) Primary insomnia (04/21/17) PTSD (post-traumatic stress disorder) PTSD (post-traumatic stress disorder) Rupture of anterior cruciate ligament of right knee Shoulder pain Stroke (~2007) Uncomplicated opioid use (05/24/17) Surgical History Hx of hysterectomy Hx of knee surgery (2003) Hx of knee surgery (09/2017) Status post appendectomy Family History Father Age: 74 Mental health disorder Mother Mental health disorder Social History marital status: household members: spouse and children education level: elementary school seatbelt use: always helmet use: Yes Smoking Status: Former smoker alcohol intake: current substance use type: marijuana during the past year weight has: decreased > 10 lbs well-balanced diet: daily or most days daily servings fruits/ve-4 caffeine: No eating out: 1-3 times/week Type(s) of exercise: additional (gym) frequency: 3-4 times per week duration: > 90 minutes/day Assessment & Plan Assessment & Plan narrative: 1. Nonexertional chest pain -strong family history and also history of stroke -high-risk -telemetry monitoring, troponin are negative x2, stress test scheduled for tomorrow 2. Left lower extremity pain, swelling of plantar surface. Callus on plantar surface of left foot. Exquisitely tender at callus site. This is very consistent with a plantar wart. However with the patient having underlying chronic pain syndrome and fibromyalgia, this may be presentation of a new location of chronic pain syndrome secondary to an underlying wart. Continue home medications for chronic pain syndrome. 3. Many comorbidities. Continue home medications except for Adderall due to the patient's presentation with chest pain. DVT prophylaxis: Lovenox GI prophylaxis: Pantoprazole Code status: Full code Time Spent With Patient Critical Care time: I spent a total of [] minutes of critical care time on this patient's care today; this time is exclusive of procedural time.
[2022-05-27 16:36] VITALS: BP 151/94; PULSE 75; RESP 18; TEMP 36.6; O2SAT 100
--- NOTE | 2022-05-27 18:44 | PC.NURSE ---
Pt requesting Aderall that she brought from home, medication in pt cabinet locked drawer. States, takes everyday and will be loopy, hard to focus, and aggravated if doesn't take. Notified Dr. Arshad and she states, holding off on Aderall because of chest pain. Notified pt.
[2022-05-27 19:55] VITALS: BP 173/99; PULSE 76; RESP 18; TEMP 36.5; O2SAT 100
[2022-05-27] MEDS: LOSARTAN 50 MG TABLET PO (21:47)
[2022-05-28] VITALS: BP 142/85; PULSE 81; RESP 18; TEMP 37.1; O2SAT 97
[2022-05-28] MEDS: MORPHINE 2 MG/ML INJ IV ×3 (05:32→13:37)
[2022-05-28 05:36] VITALS: BP 119/64; PULSE 79; RESP 18; TEMP 36.8; O2SAT 95
[2022-05-28 07:59] VITALS: BP 145/83; PULSE 65; RESP 18; TEMP 36.8; O2SAT 98
[2022-05-28] MEDS: ONDANSETRON 4 MG/2 ML INJ IV ×2 (09:28→16:49)
[2022-05-28] MEDS: ASPIRIN EC 81 MG TABLET 162 MG PO (09:56)
[2022-05-28] MEDS: ENOXAPARIN 40 MG/0.4 ML SYRINGE SUBCUT (09:56)
[2022-05-28] MEDS: SODIUM CHLORIDE 0.9% 1,000 ML 100 ML IV (10:19)
[2022-05-28 13:26] VITALS: BP 153/103; PULSE 80; RESP 18; TEMP 36.4; O2SAT 98
[2022-05-28 13:36] VITALS: BP 158/103; PULSE 76
[2022-05-28] MEDS: LOSARTAN 50 MG TABLET PO (13:36)
--- NOTE | 2022-05-28 15:36 | PM.DS.1 ---
History of Present Illness History of Present Illness Chief complaint: fluid on lt foot, painful, unable to walk Discharge Providers Provider Date of admission: 05/26/22 22:19 Discharge Date: 05/28/22 Primary care physician: Tomás Sneed MD Discharge provider: Zelda Arshad MD Summary Hospital Course Discharge Diagnosis: Diagnosis responsible for length of stay: Left-sided chest pain Pre admit diagnoses: Left-sided chest pain Pain left foot Swelling left foot Callus left plantar surface Concern for plantar wart left ball of foot Post admit diagnosis: None Secondary diagnoses: Acquired hypothyroidism (06/15/16) ADHD Anxiety (06/15/16) Anxiety (2000) Asthma Bucket handle tear of medial meniscus of knee Chronic fatigue (~2007) Cystic fibrosis Depression Endometriosis Fibromyalgia (06/15/16) Fibromyalgia (~2008) Fibromyalgia (2008) Hearing deficit Hearing loss High risk medication use (06/15/16) Hypothyroidism (1999) Irritable bowel syndrome (~2008) Migraine Migraine without status migrainosus, not intractable (06/15/16) Migraines Postsurgical menopause (05/24/17) Posttraumatic stress disorder (11/01/16) Primary insomnia (04/21/17) PTSD (post-traumatic stress disorder) PTSD (post-traumatic stress disorder) Rupture of anterior cruciate ligament of right knee Shoulder pain Stroke (~2007) Uncomplicated opioid use (05/24/17) Hx of hysterectomy Hx of knee surgery (2003) Hx of knee surgery (09/2017) Status post appendectomy Hospital Course: Patient complained on presentation to the ER of left foot pain and swelling as well as left-sided chest pain.? No sweating no nausea.? Patient states she had morphine without difficulty with her current allergies.? Patient has history of stroke back in 2007 with left-sided weakness that has resolved.? Patient has family history of coronary artery disease/or father. The left-sided chest pain and the left foot pain appeared to be completely separate issues. The left foot pain ethics significant callus on the plantar surface of the ball of the left foot and most likely had a plantar wart underneath the callus. It was exquisitely tender and there was significant swelling in the soft tissues on the plantar surface of the foot and between the metatarsal bones of the midfoot. There did not appear to be any erythema or any signs of infection. It appeared to be swelling that was irritating the soft tissues of the foot and most likely a plantar wart. Referral will be made to a cement paver on discharge. A small dose of will be prescribed so she can take 50 mg t.i.d. as needed. In regards to the left-sided chest pain, a cardiac stress test was completed pharmacologically. On discussing the results with Dr. Raza, cardiology, there appeared to be a very small area of reversible ischemia however on another view this possibly was only an artifact. Therefore the cardiac stress test is not conclusive for ischemia. Patient can be discharged without concern for ongoing cardiac issues. Adderall was held during the hospital stay so as not to stimulate the heart. Status at Discharge Cognitive/behavioral status at discharge: at baseline, oriented Functional status at discharge: independent ambulation Overall status at discharge: patient is back to baseline Time Spent with Patient Time spent: Greater than 30 minutes Exam Vital Signs (past 8 hours): - 05/28/22 07:59 05/28/22 13:26 05/28/22 13:36 Temperature 98.2 F 97.6 F Pulse Rate 65 80 76 Respiratory Rate 18 18 Blood Pressure 145/83 H 153/103 H 158/103 H Pulse Oximetry 98 98 Oxygen Flow Rate 0 0 Oxygen Delivery Method Room Air Oxygen Flow Rate 0 Narrative Exam Narrative: General:? In no acute medical distress. Cardiovascular:? Heart sounds S1 and S2 Respiratory:? Adequate air entry throughout the lung [place] Extremities:? Swelling left foot.? No erythema.? Most marked tenderness at the ball of the left foot in area where there is a callus. Objective Labs Result Diagrams: 05/26/22 19:52 05/26/22 19:52 [facility] Medical History Acquired hypothyroidism (06/15/16) ADHD Anxiety (06/15/16) Anxiety (~2000) Anxiety (2000) Asthma Bucket handle tear of medial meniscus of knee Chronic fatigue (~2007) Cystic fibrosis Depression Endometriosis Fibromyalgia (06/15/16) Fibromyalgia (~2008) Fibromyalgia (2008) Hearing deficit Hearing loss Hearing loss High risk medication use (06/15/16) Hypothyroid (~1999) Hypothyroidism (1999) Irritable bowel syndrome (~2008) Migraine Migraine without status migrainosus, not intractable (06/15/16) Migraines Postsurgical menopause (05/24/17) Posttraumatic stress disorder (11/01/16) Primary insomnia (04/21/17) PTSD (post-traumatic stress disorder) PTSD (post-traumatic stress disorder) Rupture of anterior cruciate ligament of right knee Shoulder pain Stroke (~2007) Uncomplicated opioid use (05/24/17) Surgical History Hx of hysterectomy Hx of knee surgery (2003) Hx of knee surgery (09/2017) Status post appendectomy Family History Father Age: 74 Mental health disorder Mother Mental health disorder Social History marital status: household members: spouse and children education level: elementary school seatbelt use: always helmet use: Yes Smoking Status: Former smoker alcohol intake: current substance use type: marijuana during the past year weight has: decreased > 10 lbs well-balanced diet: daily or most days daily servings fruits/ve-4 caffeine: No eating out: 1-3 times/week Type(s) of exercise: additional (gym) frequency: 3-4 times per week duration: > 90 minutes/day Discharge Plan Discharge Plan Patient Disposition: Home Discharge orders & Medications Prescriptions: New tramadol 50 mg tablet 50 mg PO Q8H PRN (Reason: pain) Qty: 30 0RF Continued montelukast [Singulair] 10 mg tablet 10 mg PO Q DAY Qty: 90 3RF losartan 50 mg tablet 50 mg PO DAILY Label Comments: TAKE ONE TABLET BY MOUTH ONE TIME DAILY tizanidine 2 mg tablet 2 - 4 mg PO BID PRN (Reason: Spasms) Label Comments: TAKE ONE OR TWO TABLETS BY MOUTH TWICE DAILY NEEDED for muscle spasm ibuprofen 800 mg tablet 800 mg PO Q8-10H PRN (Reason: Pain, Moderate) Label Comments: TAKE ONE TABLET BY MOUTH EVERY EIGHT HOURS WITH FOOD dextroamphetamine-amphetamine 25 mg capsule,extended release 24hr 30 mg PO QAM Label Comments: TAKE ONE CAPSULE BY MOUTH EVERY MORNING WITH FOOD promethazine 50 mg tablet 25 mg PO Q DAY PRN PRN (Reason: nausea and vomiting) albuterol sulfate [Proventil HFA] 90 MCG/PUFF HFA aerosol inhaler 1 puff IH BID medroxyprogesterone [Depo-Provera] 150 mg/mL Syringe 150 mg IM [id number] Follow up/Referrals: Tomás Sneed MD [Primary Care Provider] - Diet/Activity/Treatments Diet: Diet as Tolerated Discharge Data Primary Care Provider: Tomás Sneed Attending Provider: Codi Levin
--- NOTE | 2022-05-28 16:45 | DI.NM.S_ITS ---
DATE OF SERVICE: 05/28/2022 PROCEDURE: Pharmacological perfusion study. INDICATION: Chest pain. RADIOPHARMACEUTICAL: 27.1 millicurie technetium-99m Myoview IV was injected at stress and 9.4 millicurie technetium-99m Myoview IV was injected at rest. CARDIAC STRESS: The patient underwent IV Lexiscan perfusion study under the supervision of an attending staff using standard intravenous Lexiscan protocol. Baseline blood pressure 170/98. Baseline rhythm was sinus. During stress, there were no convincing ischemic changes. No significant arrhythmias seen. The patient had minimal dyspnea. No chest discomfort. RAW DATA: There is increased subdiaphragmatic activity. It is affecting the apex and inferior border of the heart, more in stress supine than resting supine images. Please note, the patient does not have any stress prone images. GATED STUDY: Stress LV ejection fraction 84 percent without any obvious wall motion abnormalities. Stress end-diastolic volume 93 mL. Lung/heart ratio 0.35, which is within normal limits. TID ratio 1.19, which is within normal limits. It is a pharmacological perfusion study. MYOCARDIAL PERFUSION SCAN: This patient does not have any stress prone images. Stress supine and resting supine images were compared to each other. There appears to be mild reversible perfusion defect involving the distal inferior wall and inferoapex. Summed rest score 0 and summed stress score 3 and difference score is 3. CONCLUSION: This is an abnormal myocardial perfusion study with mild reversible ischemia of the distal inferior wall and inferoapex with summed difference score 3. However, there is increased subdiaphragmatic activity seen during stress supine images involving the inferior border of the heart and the apex. [place] and inferior wall is moving well. This could be an artifact, as well. However, we do not have any stress prone images. Overall, this is a low-risk myocardial perfusion scan. Correlate clinically. Discussed the findings with Dr. Crockett. Thanks. Petar Gaitan - MIKY/akash/vivi doc#: [id number]/job#: [id number] dd: 05/28/2022 12:56:00 dt: 05/28/2022 16:32:00 DICTATING MD/COPIES TO: Yaneth Raza MD COPIES MNE: JEAN;
[2022-05-28 16:54] VITALS: BP 185/109
--- NOTE | 2022-05-28 17:03 | PC.NURSE ---
Notified Dr. Arshad that pt blood pressure is 185/109 and heart rate 137. Dr. Arshad states, pt is likely anxious and this is increasing blood pressure and heart rate. Ativan prescribed, see MAR.
[2022-05-28] MEDS: LORazepam 2 MG/ML INJ 1 MG IV (17:22)
== END 2022-05-28 17:55 | disposition home or self-care (01) ==
LOC: ED 19:44 → AC 22:20
PROVIDERS: Admitting Provider Family Medicine; Emergency Provider Emergency Medicine; PCP Student in an Organized Health Care Education/Training Program; Referring Provider Emergency Medicine; Visit Provider Family Medicine
DX: M79.672 Pain in left foot (principal); R07.9 Chest pain, unspecified; G89.4 Chronic pain syndrome; M79.7 Fibromyalgia; Z86.73 Personal history of transient ischemic attack (TIA), and cerebral infarction without residual deficits; Z20.822 Contact with and (suspected) exposure to COVID-19
CPT/HCPCS: 36415; 71045; 73630; 78452; 80053; 81003; 82550; 84484; 85025; 85379; 87635; 90471; 90656; 93005; 93010; 93017; 93971; 96361; 96372; 96374; 96375; 96376; 99284; C9803; G0378; A9502; J1170; J1650; J2060; J2270; J2405; J2785; Q2038

== ENCOUNTER 2022-05-31 01:27 | Emergency (ER) | payer OTHER, SELFPAY ==
[2022-05-26 23:33] VITALS: BMI 27.6
[2022-05-31 01:32] VITALS: PULSE 109; RESP 16; O2SAT 99
[2022-05-31 01:34] VITALS: BP 170/109; PULSE 98; RESP 18; TEMP 36.7; O2SAT 99
--- NOTE | 2022-05-31 01:42 | ED.ALLEREA ---
HPI - Allergic Reaction General Chief complaint: Allergic Reaction Stated complaint: hives, feels body is on fire, sob Time Seen by Provider: 05/31/22 01:31 Source: patient Mode of arrival: Ambulatory Limitations: no limitations History of Present Illness HPI narrative: Patient is a 47-year-old female who states that she is here for evaluation of a potential allergic reaction. Symptoms started within the past 24 hours. She did take a Benadryl and also some ibuprofen. States she is having some shortness of breath. She was recently here admitted to the hospital and had a nuclear stress test. She is concerned that maybe she is having a reaction to the material that she was given for this test. She states that she has fibromyalgia so her body reacts differently to different things. Related Data Home Medications Medication Instructions Recorded Confirmed albuterol sulfate 90 mcg/actuation 1 puff IH BID 05/26/22 05/27/22 aerosol inhaler (Proventil HFA) dextroamphetamine-amphetamine ER 30 mg PO QAM 05/26/22 05/26/22 25 mg 24hr capsule,extend release ibuprofen 800 mg tablet 800 mg PO Q8-10H PRN Pain, Moderate 05/26/22 05/26/22 losartan 50 mg tablet 50 mg PO DAILY 05/26/22 05/26/22 promethazine 50 mg tablet 25 mg PO Q DAY PRN PRN nausea and 05/26/22 05/26/22 vomiting tizanidine 2 mg tablet 2 - 4 mg PO BID PRN Spasms 05/26/22 05/26/22 medroxyprogesterone 150 mg/mL 150 mg IM [id number] 05/27/22 05/27/22 intramuscular syringe (Depo-Provera) Previous Rx's Medication Instructions Recorded montelukast 10 mg tablet 10 mg PO Q DAY #90 tabs 01/26/18 (Singulair) ondansetron 8 mg disintegrating 8 mg PO Q8H #20 tabs 05/28/22 tablet tramadol 50 mg tablet 50 mg PO Q8H PRN pain #30 tabs 05/28/22 prednisone 20 mg tablet 20 mg PO DAILY 6 days #6 tabs 05/31/22 Allergies Allergy/AdvReac Type Severity Reaction Status Date / Time amoxicillin [AMOXICILLIN] Allergy Intermediate UPSET Verified 05/26/22 17:28 STOMACH, EMESIS Penicillins [PENICILLINS] Allergy Unknown Verified 05/26/22 17:28 acetaminophen [From Vicodin] AdvReac Severe Vomiting Verified 05/26/22 17:29 hydrocodone [From Vicodin] AdvReac Severe Vomiting Verified 05/26/22 17:29 oxycodone [From Percocet] AdvReac Severe Vomiting Verified 05/26/22 17:29 duloxetine [From Cymbalta] AdvReac Intermediate Diarrhea Verified 05/26/22 17:28 pregabalin [From Lyrica] AdvReac Intermediate vomiting, Verified 05/26/22 17:28 dizzy spells Review of Systems Constitutional Constitutional: Reports system reviewed and no additional complaints, except as documented Cardiovascular Cardiovascular: Reports system reviewed and no additional complaints, except as documented Respiratory Respiratory: Reports system reviewed and no additional complaints, except as documented Integumentary/Breasts Skin/Breast: Reports system reviewed and no additional complaints, except as documented Hematologic/Lymphatic On Anticoagulants: No Allergic/Immunologic Allergic/Immunologic: Reports system reviewed and no additional complaints, except as documented Patient History Medical History Acquired hypothyroidism (06/15/16) ADHD Anxiety (06/15/16) Anxiety (~2000) Anxiety (2000) Asthma Bucket handle tear of medial meniscus of knee Chronic fatigue (~2007) Cystic fibrosis Depression Endometriosis Fibromyalgia (06/15/16) Fibromyalgia (~2008) Fibromyalgia (2008) Hearing deficit Hearing loss Hearing loss High risk medication use (06/15/16) Hypothyroid (~1999) Hypothyroidism (1999) Irritable bowel syndrome (~2008) Migraine Migraine without status migrainosus, not intractable (06/15/16) Migraines Postsurgical menopause (05/24/17) Posttraumatic stress disorder (11/01/16) Primary insomnia (04/21/17) PTSD (post-traumatic stress disorder) PTSD (post-traumatic stress disorder) Rupture of anterior cruciate ligament of right knee Shoulder pain Stroke (~2007) Uncomplicated opioid use (05/24/17) Surgical History Hx of hysterectomy Hx of knee surgery (2003) Hx of knee surgery (09/2017) Status post appendectomy Family History Father Age: 74 Mental health disorder Mother Mental health disorder Social History marital status: household members: spouse and children education level: elementary school seatbelt use: always helmet use: Yes Smoking Status: Former smoker alcohol intake: current substance use type: marijuana during the past year weight has: decreased > 10 lbs well-balanced diet: daily or most days daily servings fruits/ve-4 caffeine: No eating out: 1-3 times/week Type(s) of exercise: additional (gym) frequency: 3-4 times per week duration: > 90 minutes/day Smoking Status: Former smoker alcohol intake frequency: holidays/special occasions only Substance Use Type: marijuana Exam Initial Vital Signs Initial Vital Signs: Vital Signs Pulse Rate 109 H 05/31/22 01:32 Respiratory Rate 16 05/31/22 01:32 Pulse Oximetry 99 05/31/22 01:32 Const General: cooperative, healthy appearing and comfortable HENNH Mouth: moist mucous membranes Throat: posterior oropharynx normal Resp Effort & Inspection: normal respiratory effort Auscultation: clear to auscultation bilaterally Cardio Rate: regular rate Skin Other: Patient has bruising on her upper extremities consistent with the IVs that she had of her recent admission to the hospital. She has small red snow on her chest but no urticaria. No surrounding erythema. These are the areas that she states are itching. Neuro General: patient alert, patient awake and moves all extremities Extrem General: normal to inspection and capillary refill normal Course Orders Ordered: Discontinued Medications Prednisone (Prednisone 20 Mg Tablet) 20 mg PO NOW ONE Stop: 05/31/22 01:43 Last Admin: 05/31/22 01:51 Dose: 20 mg Documented By: SUDHIR Vital Signs Vital signs: Vital Signs - 8 hr 05/31/22 01:34 05/31/22 01:32 Temperature 98.1 F Pulse Rate 98 H 109 H Respiratory Rate 18 16 Blood Pressure 170/109 H Pulse Oximetry 99 99 Oxygen Delivery Method Room Air MDM - Allergic Reaction MDM Narrative Medical decision making narrative: She does have some areas of redness on her upper chest that she states are itching. They do not appear to be urticarial. Unsure the exact etiology of any allergic reaction. I have low suspicion was the stress test that she had recently in the material that she got for this. Will send her home with a prescription for steroids for the next couple days. Patient is not having an anaphylactic reaction. She was given return precautions. Discharge Plan Departure Patient Disposition: Home Clinical Impression: Allergic reaction Instructions: DI for General Allergic Reactions Activity Restrictions/Additional Instructions: I recommend that you continue with the Benadryl. You can also take Claritin. We will start you on a prescription of steroids. Your 1st dose was given here in the ER. A prescription was sent to the pharmacy of your choice. Contact your primary doctor for a follow-up. Prescriptions: New prednisone 20 mg tablet 20 mg PO DAILY 6 Days Qty: 6 0RF No Action montelukast [Singulair] 10 mg tablet 10 mg PO Q DAY Qty: 90 3RF losartan 50 mg tablet 50 mg PO DAILY Label Comments: TAKE ONE TABLET BY MOUTH ONE TIME DAILY tizanidine 2 mg tablet 2 - 4 mg PO BID PRN (Reason: Spasms) Label Comments: TAKE ONE OR TWO TABLETS BY MOUTH TWICE DAILY NEEDED for muscle spasm ibuprofen 800 mg tablet 800 mg PO Q8-10H PRN (Reason: Pain, Moderate) Label Comments: TAKE ONE TABLET BY MOUTH EVERY EIGHT HOURS WITH FOOD dextroamphetamine-amphetamine 25 mg capsule,extended release 24hr 30 mg PO QAM Label Comments: TAKE ONE CAPSULE BY MOUTH EVERY MORNING WITH FOOD promethazine 50 mg tablet 25 mg PO Q DAY PRN PRN (Reason: nausea and vomiting) albuterol sulfate [Proventil HFA] 90 MCG/PUFF HFA aerosol inhaler 1 puff IH BID medroxyprogesterone [Depo-Provera] 150 mg/mL Syringe 150 mg IM [id number] tramadol 50 mg tablet 50 mg PO Q8H PRN (Reason: pain) Qty: 30 0RF ondansetron 8 mg tablet,disintegrating 8 mg PO Q8H Qty: 20 0RF Referrals: Miscellaneous,Doctor, MD [Primary Care Provider] - Visit Report Forms: Patient Portal/API
[2022-05-31] MEDS: predniSONE 20 MG TABLET PO (01:51)
== END 2022-05-31 01:57 | disposition home or self-care (01) ==
PROVIDERS: Emergency Provider Emergency Medicine
DX: T78.40XA Allergy, unspecified, initial encounter (principal); R06.02 Shortness of breath
CPT/HCPCS: 99283

== ENCOUNTER 2022-06-16 13:52 | Emergency (ER) | payer OTHER, SELFPAY ==
[2022-05-26 23:33] VITALS: BMI 27.6
[2022-06-16] VITALS (24 sets, daily range): BP systolic 124–191; BP diastolic 95–109; PULSE 88–131; RESP 16–60; TEMP 36.4; O2SAT 95–99; BMI 24.0
--- NOTE | 2022-06-16 14:09 | DI.RAD.S_ITS ---
PROCEDURE: XR CHEST 1V INDICATIONS: chest pain TECHNIQUE: One view of the chest was acquired. COMPARISON: [facility], CR, XR CHEST 1V, 05/26/2022, 20:16. FINDINGS: Surgical changes and devices: None. Lungs and pleura: Lungs are clear. No pleural effusions or pneumothorax. Mediastinum: Mediastinal contours appear normal. Heart size is normal. Bones and chest wall: No suspicious bony lesions. Overlying soft tissues appear unremarkable. IMPRESSION: No acute cardiopulmonary pathology. Dictated by: Keith Le M.D. on 06/16/2022 at 14:52 Approved by: Keith Le M.D. on 06/16/2022 at 14:52
[2022-06-16 14:26] LABS: Prothrombin Time 11.3 SECONDS (10.1-12.7)
[2022-06-16 14:29] LABS: PTT Partial Thromboplastin Tim 28 SECONDS (26-36)
[2022-06-16 14:30] LABS: Add Manual Diff / Slide Review NO; Basophils Absolute Auto 100 /uL (0-100); Basophils Percent Auto 0.7 % (0-2); Eosinophils Absolute Auto 0 /uL (0-450); Eosinophils Percent Auto 0.4 % (2-4); Hemoglobin 14.8 g/dL (12.0-16.0); Lymphocytes Absolute Auto 1900 /uL (1100-4500); Lymphocytes Percent Auto 20.2 % (25-40); Mean Corpuscular HGB Conc 33.7 % (30-36); Mean Corpuscular Hemoglobin 32.7 PG (26-34); Mean Corpuscular Volume 96.9 fL (80-100); Monocytes Absolute Auto 800 /uL (0-900); Monocytes Percent Auto 8.4 % (3-14); Neutrophils Absolute Auto 6800 /uL (1500-7000); Neutrophils Percent Auto 70.3 % (50-75); Platelet Count 500 X10^3/uL (150-400); Red Blood Cell Count 4.54 X10^6/uL (4.0-5.2); Red Cell Distribution Width 13.4 % (11.6-14.8); White Blood Cell Count 9.6 X10^3/uL (4.5-11.0)
--- NOTE | 2022-06-16 15:01 | ED.CHESTPAIN ---
HPI - Chest Pain General Chief Complaint: Chest Pain Stated Complaint: xtry of heart attack chest pain high BP & heart ra Time Seen by Provider: 06/16/22 14:11 Source: patient Mode of arrival: Family Vehicle Limitations: no limitations History of Present Illness HPI narrative: 47-year-old female. Known history of coronary artery disease. Multiple other chronic medical issues. Here for evaluation of approximately 1 week of chest discomfort and shortness of breath. States her daughter recently was diagnosed with RSV. She went to her primary doctor yesterday. She was tachycardic. Her blood pressure was elevated. She stated that they wanted to admit her yesterday for fear of her cardiac history but she refused. They did do a nasal swab but does not know the results of this. No lower extremity swelling. Related Data Home Medications Medication Instructions Recorded Confirmed albuterol sulfate 90 mcg/actuation 1 puff IH BID 05/26/22 05/27/22 aerosol inhaler (Proventil HFA) dextroamphetamine-amphetamine ER 30 mg PO QAM 05/26/22 05/26/22 25 mg 24hr capsule,extend release ibuprofen 800 mg tablet 800 mg PO Q8-10H PRN Pain, Moderate 05/26/22 05/26/22 losartan 50 mg tablet 50 mg PO DAILY 05/26/22 05/26/22 promethazine 50 mg tablet 25 mg PO Q DAY PRN PRN nausea and 05/26/22 05/26/22 vomiting tizanidine 2 mg tablet 2 - 4 mg PO BID PRN Spasms 05/26/22 05/26/22 medroxyprogesterone 150 mg/mL 150 mg IM [id number] 05/27/22 05/27/22 intramuscular syringe (Depo-Provera) Previous Rx's Medication Instructions Recorded montelukast 10 mg tablet 10 mg PO Q DAY #90 tabs 01/26/18 (Singulair) ondansetron 8 mg disintegrating 8 mg PO Q8H #20 tabs 05/28/22 tablet tramadol 50 mg tablet 50 mg PO Q8H PRN pain #30 tabs 05/28/22 oseltamivir 75 mg capsule (Tamiflu) 75 mg PO Q12H 5 days #10 caps 06/16/22 Allergies Allergy/AdvReac Type Severity Reaction Status Date / Time amoxicillin [AMOXICILLIN] Allergy Intermediate UPSET Verified 06/16/22 14:03 STOMACH, EMESIS Penicillins [PENICILLINS] Allergy Unknown Verified 06/16/22 14:03 acetaminophen [From Vicodin] AdvReac Severe Vomiting Verified 06/16/22 14:03 hydrocodone [From Vicodin] AdvReac Severe Vomiting Verified 06/16/22 14:03 oxycodone [From Percocet] AdvReac Severe Vomiting Verified 06/16/22 14:03 duloxetine [From Cymbalta] AdvReac Intermediate Diarrhea Verified 06/16/22 14:03 pregabalin [From Lyrica] AdvReac Intermediate vomiting, Verified 06/16/22 14:03 dizzy spells Review of Systems Review of Systems ROS Unobtainable: All systems reviewed & are unremarkable except as noted in HPI and below Patient History Medical History (Updated 06/16/22 @ 18:55 by Juarez Krishnan DO) Acquired hypothyroidism (06/15/16) ADHD Anxiety (06/15/16) Anxiety (~2000) Anxiety (2000) Asthma Bucket handle tear of medial meniscus of knee Chronic fatigue (~2007) Cystic fibrosis Depression Endometriosis Fibromyalgia (06/15/16) Fibromyalgia (~2008) Fibromyalgia (2008) Hearing deficit Hearing loss Hearing loss High risk medication use (06/15/16) Hypothyroid (~1999) Hypothyroidism (1999) Irritable bowel syndrome (~2008) Migraine Migraine without status migrainosus, not intractable (06/15/16) Migraines Postsurgical menopause (05/24/17) Posttraumatic stress disorder (11/01/16) Primary insomnia (04/21/17) PTSD (post-traumatic stress disorder) PTSD (post-traumatic stress disorder) Rupture of anterior cruciate ligament of right knee Shoulder pain Stroke (~2007) Uncomplicated opioid use (05/24/17) Surgical History Hx of hysterectomy Hx of knee surgery (2003) Hx of knee surgery (09/2017) Status post appendectomy Family History Father Age: 74 Mental health disorder Mother Mental health disorder Social History marital status: household members: spouse and children education level: elementary school seatbelt use: always helmet use: Yes Smoking Status: Former smoker alcohol intake: current substance use type: marijuana during the past year weight has: decreased > 10 lbs well-balanced diet: daily or most days daily servings fruits/ve-4 caffeine: No eating out: 1-3 times/week Type(s) of exercise: additional (gym) frequency: 3-4 times per week duration: > 90 minutes/day Smoking Status: Former smoker alcohol intake frequency: holidays/special occasions only Substance Use Type: marijuana Exam Initial Vital Signs Initial Vital Signs: Vital Signs Temperature 97.6 F 06/16/22 14:01 Pulse Rate 131 H 06/16/22 14:01 Respiratory Rate 16 06/16/22 14:01 Blood Pressure 136/100 H 06/16/22 14:01 Pulse Oximetry 98 06/16/22 14:01 Oxygen Delivery Method 06/16/22 14:01 Const General: cooperative and No ill appearing HENMT Head: normal to inspection and normocephalic Chest Chest: normal inspection of the chest Resp Effort & Inspection: not labored and tachypneic Auscultation: wheezes Cardio Rate: tachycardic Rhythm: regular rhythm GI Inspection: normal to inspection Skin General: no rashes or lesions noted Neuro General: patient alert, patient awake, patient oriented x3 and moves all extremities Extrem General: No edema Psych Appearance: grossly normal and well kempt Course Orders Ordered: ED Orders 06/16/22 14:05 Complete Blood Count AUTO DIFF Stat D Dimer Stat Partial Thromboplastin Time Stat Prothrombin Time INR Stat 06/16/22 14:09 XR chest 1V Stat EKG-12 Lead Stat 06/16/22 14:20 Covid-19 + FLU A/B + RSV - PCR Stat 06/16/22 16:10 Comprehensive Metabolic Panel Stat Lipase Stat Magnesium Stat NT-proBNP (BNP-Adult 18+) Stat Troponin & CK Cardiac Panel Stat 06/16/22 18:18 Troponin I Stat Discontinued Medications Ondansetron HCl (Ondansetron 4 Mg/2 Ml Inj) 4 mg IV NOW ONE Stop: 06/16/22 15:39 Last Admin: 06/16/22 16:15 Dose: 4 mg Documented By: JOSE A Tramadol HCl (Tramadol 50 Mg Tablet) 50 mg PO NOW ONE Stop: 06/16/22 15:39 Last Admin: 06/16/22 16:15 Dose: 50 mg Documented By: JOSE A Vital Signs Vital signs: Vital Signs - 8 hr 06/16/22 14:01 06/16/22 14:15 06/16/22 14:17 Temperature 97.6 F Pulse Rate 131 H Respiratory Rate 16 Blood Pressure 136/100 H 147/106 H Pulse Oximetry 98 95 Oxygen Delivery Method Room Air 06/16/22 14:17 06/16/22 14:30 06/16/22 14:30 Temperature Pulse Rate 120 H 122 H Respiratory Rate 27 H 39 H Blood Pressure 152/107 H Pulse Oximetry 98 98 Oxygen Delivery Method Room Air 06/16/22 14:45 06/16/22 15:00 06/16/22 15:01 Temperature Pulse Rate 121 H 117 H Respiratory Rate 37 H 36 H Blood Pressure 191/109 H Pulse Oximetry 97 97 Oxygen Delivery Method 06/16/22 15:01 06/16/22 15:15 06/16/22 15:30 Temperature Pulse Rate 113 H 113 H 105 H Respiratory Rate 39 H 33 H 33 H Blood Pressure Pulse Oximetry 97 96 95 Oxygen Delivery Method 06/16/22 15:31 06/16/22 15:31 06/16/22 15:45 Temperature Pulse Rate 110 H 106 H Respiratory Rate 29 H 33 H Blood Pressure 136/95 H Pulse Oximetry 96 96 Oxygen Delivery Method 06/16/22 16:00 06/16/22 16:00 06/16/22 16:15 Temperature Pulse Rate 109 H 111 H Respiratory Rate 30 H 39 H Blood Pressure 145/97 H Pulse Oximetry 97 96 Oxygen Delivery Method 06/16/22 16:30 06/16/22 16:30 06/16/22 16:45 Temperature Pulse Rate 106 H 99 H Respiratory Rate 27 H 24 Blood Pressure 144/102 H Pulse Oximetry 97 97 Oxygen Delivery Method Room Air 06/16/22 17:00 06/16/22 17:00 06/16/22 17:15 Temperature Pulse Rate 102 H 97 H Respiratory Rate 52 H 32 H Blood Pressure 145/107 H Pulse Oximetry 95 98 Oxygen Delivery Method 06/16/22 17:30 06/16/22 17:30 06/16/22 17:45 Temperature Pulse Rate 95 H 94 H Respiratory Rate 31 H 36 H Blood Pressure 124/103 H Pulse Oximetry 96 97 Oxygen Delivery Method Room Air 06/16/22 18:00 06/16/22 18:00 Temperature Pulse Rate 88 Respiratory Rate 29 H Blood Pressure 136/96 H Pulse Oximetry 97 Oxygen Delivery Method MDM - Chest Pain Lab Data Result diagrams: 06/16/22 14:05 06/16/22 16:10 Labs: Lab Results 06/16/22 06/16/22 06/16/22 Range/Units 14:05 14:05 14:05 WBC 9.6 (4.5-11.0) X10^3/uL RBC 4.54 (4.0-5.2) X10^6/uL Hgb 14.8 (12.0-16.0) g/dL Hct 44.0 (36-46) % MCV 96.9 (80-100) fL MCH 32.7 (26-34) PG MCHC 33.7 (30-36) % RDW 13.4 (11.6-14.8) % Plt Count 500 H (150-400) X10^3/uL Neut % (Auto) 70.3 (50-75) % Lymph % (Auto) 20.2 L (25-40) % [place] % (Auto) 8.4 (3-14) % Eos % (Auto) 0.4 L (2-4) % Baso % (Auto) 0.7 (0-2) % Neut # (Auto) 6800 (8216-6949) /uL Lymph # (Auto) 1900 (6150-9188) /uL [place] # (Auto) 800 (0-900) /uL Eos # (Auto) 0 (0-450) /uL Baso # (Auto) 100 (0-100) /uL PT 11.3 (10.1-12.7) SECONDS INR 1.0 (0.9-1.3) APTT 28 (26-36) SECONDS D-Dimer 849 H (<500) ng/ml Sodium (137-145) mmol/L Potassium (3.4-5.1) mmol/L Chloride (98-107) mmol/L Carbon Dioxide (22-32) mmol/L BUN (7-17) mg/dL Creatinine (0.52-1.04) mg/dL Estimated GFR (>60) mL/min BUN/Creatinine Ratio (6-22) Glucose (70-100) mg/dL Calcium (8.4-10.2) mg/dL Magnesium (1.6-2.3) mg/dL Total Bilirubin (0.2-1.3) mg/dL AST (14-36) IU/L ALT (<35) IU/L Alkaline Phosphatase (38-126) U/L Total Creatine Kinase (30-135) U/L CK-MB (CK-2) CK-MB (CK-2) Rel Index Troponin I (0.01-0.034) ng/mL NT-Pro-B Natriuret Pep (<125) pg/mL Total Protein (6.3-8.2) g/dL Albumin (3.5-5.0) g/dL Globulin (1.7-4.1) g/dL Albumin/Globulin Ratio (1.0-2.8) Lipase (23-300) U/L SARS-CoV-2 (PCR) (Negative) Influenza A (RT-PCR) (NEGATIVE) Influenza B (RT-PCR) (NEGATIVE) RSV (PCR) (Negative) 06/16/22 06/16/22 06/16/22 Range/Units 14:20 16:10 16:10 WBC (4.5-11.0) X10^3/uL RBC (4.0-5.2) X10^6/uL Hgb (12.0-16.0) g/dL Hct (36-46) % MCV (80-100) fL MCH (26-34) PG MCHC (30-36) % RDW (11.6-14.8) % Plt Count (150-400) X10^3/uL Neut % (Auto) (50-75) % Lymph % (Auto) (25-40) % [place] % (Auto) (3-14) % Eos % (Auto) (2-4) % Baso % (Auto) (0-2) % Neut # (Auto) (0954-5873) /uL Lymph # (Auto) (4322-7450) /uL [place] # (Auto) (0-900) /uL Eos # (Auto) (0-450) /uL Baso # (Auto) (0-100) /uL PT (10.1-12.7) SECONDS INR (0.9-1.3) APTT (26-36) SECONDS D-Dimer (<500) ng/ml Sodium 136 L (137-145) mmol/L Potassium 3.9 (3.4-5.1) mmol/L Chloride 102 (98-107) mmol/L Carbon Dioxide 22 (22-32) mmol/L BUN 12 (7-17) mg/dL Creatinine 0.61 (0.52-1.04) mg/dL Estimated GFR > 60 (>60) mL/min BUN/Creatinine Ratio 19.7 (6-22) Glucose 122 H (70-100) mg/dL Calcium 9.4 (8.4-10.2) mg/dL Magnesium 1.8 (1.6-2.3) mg/dL Total Bilirubin 0.4 (0.2-1.3) mg/dL AST 25 (14-36) IU/L ALT 40 H (<35) IU/L Alkaline Phosphatase 191 H (38-126) U/L Total Creatine Kinase < 20 L (30-135) U/L CK-MB (CK-2) TNP CK-MB (CK-2) Rel Index TNP Troponin I < 0.012 (0.01-0.034) ng/mL NT-Pro-B Natriuret Pep 66 (<125) pg/mL Total Protein 8.0 (6.3-8.2) g/dL Albumin 4.3 (3.5-5.0) g/dL Globulin 3.7 (1.7-4.1) g/dL Albumin/Globulin Ratio 1.2 (1.0-2.8) Lipase 108 (23-300) U/L SARS-CoV-2 (PCR) Negative (Negative) Influenza A (RT-PCR) Flu a positive H (NEGATIVE) Influenza B (RT-PCR) Flu b negative (NEGATIVE) RSV (PCR) Negative (Negative) 06/16/22 Range/Units 18:18 WBC (4.5-11.0) X10^3/uL RBC (4.0-5.2) X10^6/uL Hgb (12.0-16.0) g/dL Hct (36-46) % MCV (80-100) fL MCH (26-34) PG MCHC (30-36) % RDW (11.6-14.8) % Plt Count (150-400) X10^3/uL Neut % (Auto) (50-75) % Lymph % (Auto) (25-40) % [place] % (Auto) (3-14) % Eos % (Auto) (2-4) % Baso % (Auto) (0-2) % Neut # (Auto) (6704-8103) /uL Lymph # (Auto) (9012-5050) /uL [place] # (Auto) (0-900) /uL Eos # (Auto) (0-450) /uL Baso # (Auto) (0-100) /uL PT (10.1-12.7) SECONDS INR (0.9-1.3) APTT (26-36) SECONDS D-Dimer (<500) ng/ml Sodium (137-145) mmol/L Potassium (3.4-5.1) mmol/L Chloride (98-107) mmol/L Carbon Dioxide (22-32) mmol/L BUN (7-17) mg/dL Creatinine (0.52-1.04) mg/dL Estimated GFR (>60) mL/min BUN/Creatinine Ratio (6-22) Glucose (70-100) mg/dL Calcium (8.4-10.2) mg/dL Magnesium (1.6-2.3) mg/dL Total Bilirubin (0.2-1.3) mg/dL AST (14-36) IU/L ALT (<35) IU/L Alkaline Phosphatase (38-126) U/L Total Creatine Kinase (30-135) U/L CK-MB (CK-2) CK-MB (CK-2) Rel Index Troponin I < 0.012 (0.01-0.034) ng/mL NT-Pro-B Natriuret Pep (<125) pg/mL Total Protein (6.3-8.2) g/dL Albumin (3.5-5.0) g/dL Globulin (1.7-4.1) g/dL Albumin/Globulin Ratio (1.0-2.8) Lipase (23-300) U/L SARS-CoV-2 (PCR) (Negative) Influenza A (RT-PCR) (NEGATIVE) Influenza B (RT-PCR) (NEGATIVE) RSV (PCR) (Negative) Imaging Data Chest x-ray: Radiologist's Impression: [address] [address] XRay Report Signed Patient: Petar Gaitan MR#: [id number] : 1975 Acct:[id number] Age/Sex: 47 / F Date of Service: 06/16/22 Loc: ED Accession Number: [id number] ?? Procedure: XR chest 1V Ordering Provider: Juarez Krishnan D.O. PROCEDURE:? XR CHEST 1V ? INDICATIONS:? chest pain ? TECHNIQUE:? One view of the chest was acquired.? ? COMPARISON:? [facility], CR, XR CHEST 1V, 05/26/2022, 20:16. ? FINDINGS:? ? Surgical changes and devices:? None.? ? Lungs and pleura:? Lungs are clear.? No pleural effusions or pneumothorax.? ? Mediastinum:? Mediastinal contours appear normal.? Heart size is normal.? ? Bones and chest wall:? No suspicious bony lesions.? Overlying soft tissues appear unremarkable.? ? IMPRESSION:? No acute cardiopulmonary pathology. ? ? Dictated by: Keith Le M.D. on 06/16/2022 at 14:52 ? ? Approved by: Keith Le M.D. on 06/16/2022 at 14:52?? ECG Data Attestation: I personally reviewed and interpreted this ECG as follows: Interpretation: Sinus tachycardia Ventricular rate 110 Normal axis Normal QRS Normal QTC LVH No ST T wave changes MDM Narrative Medical decision making narrative: Patient was asking for pain medicine and nausea medication. She was given a home dose of her pain medicine. This improved her heart rate. No chest pain. She is flu positive. No pneumonia noted on the x-ray. Sinus tachycardia on the EKG. 2- troponins. Low suspicion for ACS. Low suspicion for pulmonary embolism. D-dimer ordered prior to my evaluation. Discussed Tamiflu with the patient. She is greater than 48 hours after the onset of her symptoms however given her other medical problems starting her on Tamiflu is not unreasonable and I did discuss this with her and she is okay with this. She states she is feeling well enough to go home. She expressed understanding and agreement. Discharge Plan Departure Patient Disposition: Home Clinical Impression: Influenza A Instructions: DI for Influenza -- Adult Activity Restrictions/Additional Instructions: A prescription for Tamiflu was sent to the pharmacy of your choice. Please start taking it as directed. Continue the rest of your medications as directed. Contact your primary doctor for follow-up. Prescriptions: New oseltamivir [Tamiflu] 75 mg capsule 75 mg PO Q12H 5 Days Qty: 10 0RF No Action montelukast [Singulair] 10 mg tablet 10 mg PO Q DAY Qty: 90 3RF losartan 50 mg tablet 50 mg PO DAILY Label Comments: TAKE ONE TABLET BY MOUTH ONE TIME DAILY tizanidine 2 mg tablet 2 - 4 mg PO BID PRN (Reason: Spasms) Label Comments: TAKE ONE OR TWO TABLETS BY MOUTH TWICE DAILY NEEDED for muscle spasm ibuprofen 800 mg tablet 800 mg PO Q8-10H PRN (Reason: Pain, Moderate) Label Comments: TAKE ONE TABLET BY MOUTH EVERY EIGHT HOURS WITH FOOD dextroamphetamine-amphetamine 25 mg capsule,extended release 24hr 30 mg PO QAM Label Comments: TAKE ONE CAPSULE BY MOUTH EVERY MORNING WITH FOOD promethazine 50 mg tablet 25 mg PO Q DAY PRN PRN (Reason: nausea and vomiting) albuterol sulfate [Proventil HFA] 90 MCG/PUFF HFA aerosol inhaler 1 puff IH BID medroxyprogesterone [Depo-Provera] 150 mg/mL Syringe 150 mg IM [id number] tramadol 50 mg tablet 50 mg PO Q8H PRN (Reason: pain) Qty: 30 0RF ondansetron 8 mg tablet,disintegrating 8 mg PO Q8H Qty: 20 0RF Referrals: Miscellaneous,Doctor, [Primary Care Provider] -
[2022-06-16 15:02] LABS: Influenza A - CEPHEID Flu A POSITIVE (NEGATIVE); Influenza B - CEPHEID Flu B NEGATIVE (NEGATIVE); Respiratory Syncytial Virus Negative (Negative)
[2022-06-16 15:05] LABS: COVID-19 CEPHEID 4-PLEX PCR Negative (Negative)
[2022-06-16 15:16] LABS: D Dimer 849 ng/ml (<500)
[2022-06-16] MEDS: TRAMADOL 50 MG TABLET PO (16:15)
[2022-06-16] MEDS: ONDANSETRON 4 MG/2 ML INJ IV (16:15)
[2022-06-16 16:30] LABS: Alanine Aminotransferase 40 IU/L (<35); Albumin 4.3 g/dL (3.5-5.0); Albumin Globulin Ratio 1.2 (1.0-2.8); Alkaline Phosphatase 191 U/L (38-126); Aspartate Aminotransferase 25 IU/L (14-36); BUN Creatinine Ratio 19.7 (6-22); Bilirubin Total 0.4 mg/dL (0.2-1.3); Blood Urea Nitrogen 12 mg/dL (7-17); Calcium 9.4 mg/dL (8.4-10.2); Carbon Dioxide 22 mmol/L (22-32); Chloride 102 mmol/L (98-107); Creatine Kinase < 20 U/L (30-135); Estimated Glomerular Filt Rate > 60 mL/min (>60); Globulin 3.7 g/dL (1.7-4.1); Glucose 122 mg/dL (70-100); HEMOLYSIS < 15 (0-50); Lipase 108 U/L (23-300); Magnesium 1.8 mg/dL (1.6-2.3); Potassium 3.9 mmol/L (3.4-5.1); Sodium 136 mmol/L (137-145)
[2022-06-16 16:39] LABS: NT-proBNP (BNP-Adult 18+) 66 pg/mL (<125)
[2022-06-16 16:41] LABS: Troponin I < 0.012 ng/mL (0.01-0.034)
[2022-06-16 18:46] LABS: Troponin I < 0.012 ng/mL (0.01-0.034)
== END 2022-06-16 19:19 | disposition home or self-care (01) ==
PROVIDERS: Emergency Provider Emergency Medicine
DX: J10.1 Influenza due to other identified influenza virus with other respiratory manifestations (principal); R00.0 Tachycardia, unspecified; R06.02 Shortness of breath; Z20.822 Contact with and (suspected) exposure to COVID-19
CPT/HCPCS: 0241U; 36415; 71045; 80053; 82550; 83690; 83735; 83880; 84484; 85025; 85379; 85610; 85730; 93005; 93010; 96374; 99284; J2405

== ENCOUNTER 2022-06-25 21:04 | Emergency (ER) | payer OTHER, SELFPAY ==
[2022-05-26 23:33] VITALS: BMI 27.6
[2022-06-25 21:06] VITALS: BP 181/98; PULSE 93; RESP 20; TEMP 36.6; O2SAT 96; BMI 24.0
--- NOTE | 2022-06-25 21:11 | DI.RAD.S_ITS ---
PROCEDURE: XR CHEST 1V INDICATIONS: chest pain TECHNIQUE: One view of the chest was acquired. COMPARISON: [facility], CR, XR CHEST 1V, 06/16/2022, 14:20. FINDINGS: Surgical changes and devices: None. Lungs and pleura: Lungs are clear. No pleural effusions or pneumothorax. Mediastinum: Mediastinal contours appear normal. Heart size is normal. Bones and chest wall: No suspicious bony lesions. Overlying soft tissues appear unremarkable. IMPRESSION: 1. No acute cardiopulmonary disease. Dictated by: Yao Castañeda M.D. on 06/25/2022 at 23:17 Approved by: Yao Castañeda M.D. on 06/25/2022 at 23:18
[2022-06-25 21:33] LABS: Add Manual Diff / Slide Review NO; Basophils Absolute Auto 100 /uL (0-100); Basophils Percent Auto 1.3 % (0-2); Eosinophils Absolute Auto 0 /uL (0-450); Eosinophils Percent Auto 0.4 % (2-4); Hematocrit 38.7 % (36-46); Hemoglobin 13.1 g/dL (12.0-16.0); Lymphocytes Absolute Auto 3500 /uL (1100-4500); Lymphocytes Percent Auto 34.7 % (25-40); Mean Corpuscular HGB Conc 33.7 % (30-36); Mean Corpuscular Hemoglobin 32.6 PG (26-34); Mean Corpuscular Volume 96.6 fL (80-100); Monocytes Absolute Auto 700 /uL (0-900); Monocytes Percent Auto 6.8 % (3-14); Neutrophils Absolute Auto 5700 /uL (1500-7000); Neutrophils Percent Auto 56.8 % (50-75); Platelet Count 598 X10^3/uL (150-400); Red Blood Cell Count 4.01 X10^6/uL (4.0-5.2); Red Cell Distribution Width 12.8 % (11.6-14.8); White Blood Cell Count 10.1 X10^3/uL (4.5-11.0)
[2022-06-25 21:38] LABS: Prothrombin Time 11.8 SECONDS (10.1-12.7)
[2022-06-25 21:40] LABS: PTT Partial Thromboplastin Tim 29 SECONDS (26-36)
[2022-06-25 21:44] LABS: Alanine Aminotransferase 29 IU/L (<35); Albumin 4.4 g/dL (3.5-5.0); Albumin Globulin Ratio 1.1 (1.0-2.8); Alkaline Phosphatase 178 U/L (38-126); Aspartate Aminotransferase 25 IU/L (14-36); BUN Creatinine Ratio 14.5 (6-22); Bilirubin Total 0.5 mg/dL (0.2-1.3); Blood Urea Nitrogen 10 mg/dL (7-17); COVID19 -Nasal RAPID Negative (Negative); Calcium 9.5 mg/dL (8.4-10.2); Carbon Dioxide 21 mmol/L (22-32); Chloride 106 mmol/L (98-107); Creatine Kinase 64 U/L (30-135); Estimated Glomerular Filt Rate > 60 mL/min (>60); Globulin 3.9 g/dL (1.7-4.1); Glucose 111 mg/dL (70-100); HEMOLYSIS < 15 (0-50); Lipase 72 U/L (23-300); Magnesium 1.7 mg/dL (1.6-2.3); Potassium 3.7 mmol/L (3.4-5.1); Sodium 137 mmol/L (137-145); Total Protein 8.3 g/dL (6.3-8.2)
[2022-06-25 21:55] LABS: Troponin I < 0.012 ng/mL (0.01-0.034)
== END 2022-06-25 22:03 | disposition left against medical advice (07) ==
PROVIDERS: Emergency Provider Emergency Medicine
DX: R07.9 Chest pain, unspecified (principal); Z20.822 Contact with and (suspected) exposure to COVID-19
CPT/HCPCS: 36415; 71045; 80053; 82550; 83690; 83735; 84484; 85025; 85610; 85730; 87635; 93005; 93010; 99283; C9803